=== PATIENT | male | born 1980 | race Caucasian/White ===

== ENCOUNTER 2019-12-30 16:36 | Emergency (ER) | payer OTHER ==
[~2019-12-30] VITALS: Ht 175.3 cm; Wt 90.9 kg
[2019-12-30] MEDS ORDERED: MORPHINE SULFATE 4 MG/ML VIAL. IV ONE (17:15)
--- NOTE | 2019-12-30 17:15 | PHYS DOC ---
Past Medical History Past Medical History: Alcoholism, Seizure Additional Past Surgical Histo: LEFT EYE, SPLEEN REMOVAL, FERMIN KNEES Smoking Status: Former Smoker Alcohol Use: Heavy General Adult EDM: Chief Complaint: LOWEREXTREMITY INJURY HPI: HPI: Patient is a 39 year old male who presents with states he was stepping off the back of a trash truck when his left ankle rolled inward and he fell landing on it. He states he felt a pop. Patient is unable to move the ankle as is very painful. Patient left foot is also very swollen. He can wiggle his toes. He still has full sensations intact. Tenderness to the lower tib-fib, medial and posterior ankle, and top of the foot. Patient rates his pain a 10 out of 10. EMS gave the patient 200mcg fentanyl. Review of Systems: Review of Systems: Musculoskeletal: Denies back pain. Left ankle, foot joint pain. [] Heart Score: Risk Factors: Risk Factors: DM, Current or recent (<one month) smoker, HTN, HLP, family history of CAD, obesity. Risk Scores: Score 0 - 3: 2.5% MACE over next 6 weeks - Discharge Home Score 4 - 6: 20.3% MACE over next 6 weeks - Admit for Clinical Observation Score 7 - 10: 72.7% MACE over next 6 weeks - Early Invasive Strategies Allergies: Allergies: Allergies Coded Allergies Type Severity Reaction Last Updated Verified bacitracin Allergy Unknown 12/30/19 Yes neomycin Allergy Unknown 12/30/19 Yes polymyxin B Allergy Unknown 12/30/19 Yes Physical Exam: PE: Constitutional: Well developed, well nourished, no acute distress, non-toxic appearance. [] HENT: Normocephalic, atraumatic, bilateral external ears normal, oropharynx moist, no oral exudates, nose normal. [] Eyes: PERRLA, EOMI, conjunctiva normal, no discharge. [] Neck: Normal range of motion, no tenderness, supple, no stridor. [] Cardiovascular:Heart rate regular rhythm, no murmur [] Lungs & Thorax: Bilateral breath sounds clear to auscultation [] Abdomen: Bowel sounds normal, soft, no tenderness, no masses, no pulsatile masses. [] Skin: Warm, dry, no erythema, no rash. [] Back: No tenderness, no CVA tenderness. [] Extremities: Left posterior medial ankle, left anterior foot tenderness, no cyanosis, no clubbing, no ROM intact in left ankle, 2+ edema. [] Neurologic: Alert and oriented X 3, normal motor function, normal sensory function, no focal deficits noted. [] Psychologic: Affect normal, judgement normal, mood normal. [] Current Patient Data: Vital Signs: Vital Signs Date Time Temp Pulse Resp B/P (MAP) Pulse Ox O2 Delivery O2 Flow Rate FiO2 12/30/19 16:40 97.9 84 16 138/77 (97) 93 Room Air 97.9 EKG: EKG: [] Radiology/Procedures: Radiology/Procedures: [] Impression: [facility] [address] [place], [place] [id number] IMAGING REPORT Signed PATIENT: RADHA BATISTA ACCOUNT: [id number] : 1980 LOCATION: ER AGE: 39 SEX: M EXAM STATUS: REG ER ORD. PHYSICIAN: ANTOINETTE HUERTAS APRN REASON: pain, deformity PROCEDURE: ANKLE LEFT 3V EXAM: Left foot, 3 views; left ankle, 3 views; left tibia and fibula, 2 views. HISTORY: Deformity. Pain. COMPARISON: None. FINDINGS: 3 views of the left foot and ankle and 2 views of the tibia and fibula are obtained. There are mildly displaced comminuted fractures involving the calcaneus and navicular bone. There is also lucency suggesting a nondisplaced fracture involving the medial cuneiform. The ankle mortise is intact. There is no osteochondral lesion. There is ankle and foot and the swelling. There are findings consistent with left cruciate ligament surgery. There is proximal femoral spurring. There is a small knee effusion. There is a nondisplaced fracture of the fibular diaphysis. IMPRESSION: 1. Mildly displaced and comminuted fractures of the calcaneus and navicular bone in suspected nondisplaced or minimally displaced fracture involving the medial cuneiform. 2. Nondisplaced fracture of the fibular diaphysis. 3. Findings consistent with left knee cruciate ligament surgery. There is a small left knee effusion. 4. Soft tissue swelling. Electronically signed by: Rowena Plummer MD (12/30/2019 5:56 PM) [facility] DICTATED and SIGNED BY: ROWENA PLUMMER MD DATE: 12/30/19 3271 Course & Med Decision Making: Course & Med Decision Making Pertinent Labs and Imaging studies reviewed. (See chart for details) Skin pink warm and dry. 2+ edema to left ankle, top of left foot. No abrasions or lacerations. Pedal pulses strong and present. Cap refill less than 3 seconds. Mild deformity to the medial ankle area. Unable to test laxity of the ankle joint due to pain. Patient unable to move at the ankle due to pain. Denies any numbness or tingling. Patient cannot put any pressure on the ankle. IMPRESSION: 1. Mildly displaced and comminuted fractures of the calcaneus and navicular bone in suspected nondisplaced or minimally displaced fracture involving the medial cuneiform. 2. Nondisplaced fracture of the fibular diaphysis. 3. Findings consistent with left knee cruciate ligament surgery. There is a small left knee effusion. 4. Soft tissue swelling. I have spoken to Dr. Houston and can place the patient in a stirrup and posterior splint and give the patient crutches and he can follow-up at the Ortho office. Splint assessment: Neurovascularly intact post splint replacement with good fit. Patient's extremity symptoms have stabilized well they have been evaluated in the department and are appropriate for outpatient follow-up. No evidence of compartment syndrome, neurologic injury, vascular injury, open joint, open fracture, tendon laceration, or foreign body. [] Dragon Disclaimer: Dragkiet Disclaimer: This electronic medical record was generated, in whole or in part, using a voice recognition dictation system. Departure Departure Impression: Primary Impression: Fibula fracture Qualified Codes: S82.455A - Nondisplaced comminuted fracture of shaft of left fibula, initial encounter for closed fracture Additional Impression: Calcaneus fracture, left Qualified Codes: S92.002A - Unspecified fracture of left calcaneus, initial encounter for closed fracture Disposition: 01 HOME, SELF-CARE Condition: STABLE Referrals: OTONIEL HOUSTON MD Patient Instructions: Calcaneal Fracture, Fibular Fracture, Ankle, Adult, Undisplaced, Treated with Immobilization Additional Instructions: Call Dr. Houston office running to make an appointment in the next week. Stay nonweightbearing. Use ice and elevation to help with pain and swelling. Take medication as prescribed and do not drink alcohol with the medication or drive. Scripts Ibuprofen (IBUPROFEN) 600 Mg Tablet 600 MG PO PRN Q6HRS PRN for INFLAMMATION, #20 TAB Prov: ANTOINETTE HUERTAS APRN 12/30/19 Oxycodone HCl/Acetaminophen (Percocet 5-325 mg Tablet) 1 Each Tablet 1 EACH PO Q6HRS, #15 TAB Prov: ANTOINETTE HUERTAS APRN 12/30/19 Justicifation of Admission Dx: Justifications for Admission: Justification of Admission Dx: N/A ANTOINETTE HUERTAS APRN Dec 30, 2019 17:15
--- NOTE | 2019-12-30 17:59 | RAD ---
EXAM: Left foot, 3 views; left ankle, 3 views; left tibia and fibula, 2 views. HISTORY: Deformity. Pain. COMPARISON: None. FINDINGS: 3 views of the left foot and ankle and 2 views of the tibia and fibula are obtained. There are mildly displaced comminuted fractures involving the calcaneus and navicular bone. There is also lucency suggesting a nondisplaced fracture involving the medial cuneiform. The ankle mortise is intact. There is no osteochondral lesion. There is ankle and foot and the swelling. There are findings consistent with left cruciate ligament surgery. There is proximal femoral spurring. There is a small knee effusion. There is a nondisplaced fracture of the fibular diaphysis. IMPRESSION: 1. Mildly displaced and comminuted fractures of the calcaneus and navicular bone in suspected nondisplaced or minimally displaced fracture involving the medial cuneiform. 2. Nondisplaced fracture of the fibular diaphysis. 3. Findings consistent with left knee cruciate ligament surgery. There is a small left knee effusion. 4. Soft tissue swelling. Electronically signed by: Rowena Medina MD (12/30/2019 5:56 PM) [facility]
[2019-12-30] MEDS ORDERED: OXYC-325 PO (18:35)
[2019-12-30] MEDS ORDERED: IBUP-1007 PO (18:35)
[2019-12-30 19:00] VITALS: BP 167/90
== END 2019-12-30 19:47 | disposition home or self-care (01) ==
LOC: ER 16:36
DX: S82.455A Nondisplaced comminuted fracture of shaft of left fibula, initial encounter for closed fracture (principal); S92.002A Unspecified fracture of left calcaneus, initial encounter for closed fracture; F10.10 Alcohol abuse, uncomplicated; Z87.891 Personal history of nicotine dependence; Z98.890 Other specified postprocedural states; Z88.1 Allergy status to other antibiotic agents; Z88.8 Allergy status to other drugs, medicaments and biological substances; W18.39XA Other fall on same level, initial encounter; Y93.89 Activity, other specified; Y92.89 Other specified places as the place of occurrence of the external cause; Y99.8 Other external cause status
CPT/HCPCS: 29515; 73590; 73610; 73630; 96374; 99284; J2270